=== PATIENT | female | born 1985 | race Caucasian/White ===

== ENCOUNTER 2019-08-14 12:53 | Emergency (ER) | payer OTHER ==
--- NOTE | 2019-08-14 13:17 | ED Physician Documentation ---
PD HPI HEENT FB - Chief complaint Chief Complaint: Heent - History obtained from History obtained from: Patient - History of Present Illness Timing - onset: Other (33-year-old type II diabetic on oral medication had a couple of teeth pulled from the right mandible 5 days ago. About 3 days ago started to develop submandibular swelling on that side and was prescribed clindamycin and the swelling has gone down a little bit but is still quite significant and firm. No fevers.) Review of Systems Ten Systems: 10 systems reviewed and negative Constitutional: denies: Fever, Chills Nose: denies: Rhinorrhea / runny nose, Congestion Throat: denies: Sore throat Respiratory: denies: Cough PD PAST MEDICAL HISTORY - Present Medications Home Medications: Ambulatory Orders Medication Instructions Recorded Confirmed Levofloxacin [Levaquin] 750 mg PO DAILY #10 tablet 08/14/19 - Allergies Allergies/Adverse Reactions: Allergies Allergy/AdvReac Type Severity Reaction Status Date / Time Penicillins Allergy Hives Verified 08/14/19 13:06 Sulfa (Sulfonamide Allergy Hives Verified 08/14/19 13:05 Antibiotics) PD ED PE NORMAL - Vitals Vital signs reviewed: Yes - General General: Alert and oriented X 3, No acute distress - HEENT HEENT: Other (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 There is a significant amount of some mandibular swelling and tender mass consistent with probably an abscess on the right. There is no sublingual edema but there is mild trismus.) - Neck Neck: Supple, no meningeal sign, No bony TTP - Neuro Neuro: Alert and oriented X 3, Normal speech Results - Vitals Vitals: Vital Signs - 24 hr 08/14/19 13:02 Temperature 37.4 C Heart Rate 120 H Respiratory 18 Rate Blood Pressure 145/91 H O2 Saturation 99 Oxygen O2 Source Room air - Labs Labs: Laboratory Tests 08/14/19 08/14/19 13:21 13:21 WBC 7.3 RBC 4.39 Hgb 12.1 Hct 37.9 MCV 86.3 MCH 27.6 MCHC 31.9 L RDW 12.4 Plt Count 249 MPV 9.9 Neut # (Auto) 5.3 Lymph # (Auto) 1.2 L [place] # (Auto) 0.6 Eos # (Auto) 0.2 Baso # (Auto) 0.1 Absolute Nucleated RBC 0.00 Nucleated RBC % 0.0 Sodium 138 Potassium 3.7 Chloride 100 L Carbon Dioxide 25 Anion Gap 13.0 BUN 8 Creatinine 0.8 Estimated GFR (MDRD) 83 L Glucose 98 Calcium 9.2 - Rads (name of study) Ct Fac e Radiology: EMP read contemporaneously (1. There is a right lower buccal space infection with extension in the overlying soft tissues lateral. There is extension into the submental region with involvement of the submandibular space bilaterally. There is suspicion for developing abscess along the medial aspect of the right mandible body. 2. Reactive lymphadenopathy is seen on the right and left most evident in the submental region and adjacent to the right submandibular gland. 3. Bilateral maxillary sinus mucosal thickening. There is a suggestion of an acute component to the maxillary sinus inflammatory mucosal disease bilaterally. ) PD MEDICAL DECISION MAKING - ED course ED course: 33-year-old woman with postoperative dental infection, may be very early Gerard's, CT as shown per case discussed by phone with Dr. Levi Cm, oral maxillofacial surgeon who agrees with changing her antibiotics to Levaquin and he will see her tomorrow morning. Departure - Departure Disposition: 01 Home, Self Care Clinical Impression: Abscess of submandibular gland Condition: Good Record reviewed to determine appropriate education?: Yes Follow-Up: [facility] [Physician No Access] - (TOMORROW at 8am) Prescriptions: Levofloxacin [Levaquin] 750 mg PO DAILY #10 tablet Comments: Dr. Cm is expecting you tomorrow morning at 8 AM, take the CD scan with the CT with you to that visit. Return in the interim if worse. Change the antibiotic from clindamycin to Levaquin, he received an IV dose here so you do not need till tomorrow.
[2019-08-14] MEDS ORDERED: IOVERSOL 320 100 ML VIAL IVP ONE ×2 (13:33→14:28)
[2019-08-14 13:44] LABS: BASOPHILS # (AUTO) 0.1 10^3/uL (0.0-0.1); BASOPHILS % (AUTO) 0.7 %; EOSINOPHILS # (AUTO) 0.2 10^3/uL (0.0-0.7); EOSINOPHILS % (AUTO) 2.2 %; HGB - HEMOGLOBIN 12.1 g/dL (12.0-16.0); LYMPHOCYTES # (AUTO) 1.2 10^3/uL (1.5-3.5); LYMPHOCYTES % (AUTO) 16.6 %; MEAN CORPUSCULAR HEMOGLOBIN 27.6 pg (27.0-31.0); MEAN CORPUSCULAR HGB CONC 31.9 g/dL (32.0-36.0); MEAN CORPUSCULAR VOLUME 86.3 fL (81.0-99.0); MEAN PLATELET VOLUME 9.9 fL (7.9-10.8); MONOCYTES # (AUTO) 0.6 10^3/uL (0.0-1.0); NEUTROPHILS # (AUTO) 5.3 10^3/uL (1.5-6.6); NEUTROPHILS % (AUTO) 72.1 %; PLT - PLATELET COUNT 249 10^3/uL (130-450); RED BLOOD COUNT 4.39 10^6/uL (4.20-5.40); RED CELL DISTRIBUTION WIDTH 12.4 % (12.0-15.0); WHITE BLOOD COUNT 7.3 x10^3/uL (4.8-10.8)
[2019-08-14 13:50] LABS: CALCIUM 9.2 mg/dL (8.5-10.3); CREATININE 0.8 mg/dL (0.4-1.0)
--- NOTE | 2019-08-14 15:06 | CT Report ---
Reason: W IV contrast, R submandibular mass, ? abscess Procedure Date: 08/14/2019 Accession Number: [id number] / [id number] Procedure: CT - MAXILLOFACIAL W CPT Code: Final Report FULL RESULT: EXAM: CT MAXILLOFACIAL WITH CONTRAST EXAM DATE: 08/14/2019 02:27 PM. CLINICAL HISTORY: Right submandibular mass, question abscess. COMPARISONS: None. TECHNIQUE: Thin-section axial images were acquired of the face after administration of intravenous contrast. Post-processing: Coronal and sagittal reformats. Other: None. IV contrast: 80 mL Optiray 320. In accordance with CT protocol optimization, one or more of the following dose reduction techniques were utilized for this exam: automated exposure control, adjustment of mA and/or KV based on patient size, or use of iterative reconstructive technique. FINDINGS: The right lower buccal space is diffusely thickened. There is a 0.5 x 1.8 cm transverse by anterior posterior posterior marginated focus of fluid medial to the right mandible body with subtle enhancement along the lateral margin. This extends inferiorly and appears to have a component inferior to the mandible body. This is seen just posterior to a site of previous tooth extraction. There is dehiscence of the lateral cortex of this extraction pocket. A small metallic density is seen within this extraction pocket of the right lower second premolar in the right lower mandible. There is reticulation of the subcutaneous fat overlying the right mandible body extending into the submental region. This extends to the left of midline. There is a thickened appearance to the platysma bilaterally. The left lower buccal space is not thickened. Lymphadenopathy is seen anterior and inferior to the right submandibular gland and in the posterior submental region bilaterally. Inflammatory change is seen adjacent to the right submandibular gland and to the left submandibular gland. No discrete mass is present in either submandibular gland or in either parotid gland. Expected enhancement is seen in the internal jugular vein bilaterally. No enhancing mass is identified in the visualized brain parenchyma. No mass is present in either orbit. There is an extraction pocket in the left lower mandible from extraction of the lower second premolar on the left. Bilateral maxillary sinus mucosal thickening is seen. There is an air-fluid level in the left maxillary sinus. Wispy soft tissue is seen in the right maxillary sinus. IMPRESSION: 1. There is a right lower buccal space infection with extension lateral into the overlying soft tissues. There is extension inferiorly into the submental region bilaterally with involvement of the a submandibular space bilaterally. There is suspicion for developing abscess along the medial aspect of the right mandible body. 2. Reactive lymphadenopathy is seen on the right and left most evident in the submental region and adjacent to the right submandibular gland. 3. Bilateral maxillary sinus mucosal thickening. There is a suggestion of an acute component to the maxillary sinus inflammatory mucosal disease bilaterally. [facility]
[2019-08-14] MEDS ORDERED: levoFLOXacin 750 MG/150 ML 750 MG/150 ML BAG IV ONE (15:11)
[2019-08-14] MEDS ORDERED: DEXAMETHASONE 10 MG/ML VIAL IVP STA (15:15)
[2019-08-14 16:47] VITALS: BP 128/77
== END 2019-08-14 17:05 | disposition home or self-care (01) ==
LOC: ED 12:53
DX: T81.40XA Infection following a procedure, unspecified, initial encounter (principal); K11.3 Abscess of salivary gland; E11.9 Type 2 diabetes mellitus without complications; Z79.84 Long term (current) use of oral hypoglycemic drugs
CPT/HCPCS: 36415; 70487; 80048; 85025; 96365; 96366; 99283; 99284; Q9967